=== PATIENT | male | born 1995 | race Caucasian/White ===

== ENCOUNTER 2019-12-16 23:40 | Inpatient (IN) ==
[2019-12-17] MEDS ORDERED: Ondansetron ODT 4 MG TAB.RAPDIS SL ONE (00:04)
[2019-12-17 00:12] LABS: Bilirubin,Urine Small (Negative); Blood,Urine Negative (Negative); Clarity,Urine Clear (Clear); Color,Urine Yellow (Yellow); Glucose,Urine (UA) Normal (Normal); Ketones,Urine Negative (Negative); Leukocyte Esterase,Urine Negative (Negative); Nitrite,Urine Negative (Negative); Protein,Urine 30 mg/dL (Neg-Trace); Specific Gravity,Urine 1.029 (1.010-1.025); Urobilinogen,Urine Normal (Normal)
[2019-12-17 00:13] LABS: Bacteria,Urine None Seen per hpf (None-Few); Hyaline Casts,Urine None Seen per lpf (None-Few); RBC,Urine 0-3 per hpf (0-3); Squamous Epithelial Cell,Urine Many per lpf (None-Few); WBC,Urine 0-3 per hpf (0-3)
[2019-12-17 00:17] LABS: Amphetamine Screen,Urine Positive ng/mL (Cutoff=1000); Barbiturate Screen,Urine Negative ng/mL (Cutoff=200); Benzodiazepines Screen,Urine Negative ng/mL (Cutoff=200); Cannabinoid Screen,Urine Positive ng/mL (Cutoff = 50); Cocaine Screen,Urine Positive ng/mL (Cutoff= 300); Opiate Screen,Urine Negative ng/mL (Cutoff=300); Phencyclidine Screen,Urine Negative ng/mL (Cutoff=25)
[2019-12-17] MEDS ORDERED: *HR* LORazepam 1 MG TABLET PO PRN (01:43)
[2019-12-17] MEDS ORDERED: traZODone 50 MG TABLET PO PRN (01:43)
[2019-12-17] MEDS ORDERED: Mag Hydrox/Al Hydrox/Simeth 30 ML UDC PO PRN (01:43)
[2019-12-17] MEDS ORDERED: Haloperidol Lactate 5 MG/ML VIAL IM PRN (01:43)
[2019-12-17] MEDS ORDERED: *HR* LORazepam 2 MG/ML VIAL IM PRN (01:43)
[2019-12-17] MEDS ORDERED: MOM Conc 10 ML UD.LIQ PO PRN (01:43)
[2019-12-17] MEDS ORDERED: haloperidoL 5 MG TABLET PO PRN (01:43)
[2019-12-17] MEDS ORDERED: hydrOXYzine pamoate 25 MG CAPSULE PO PRN (01:43)
[2019-12-17] MEDS ORDERED: Acetaminophen 325 MG TABLET PO PRN (01:43)
[2019-12-17] MEDS: Nicotine 21 MG PATCH.TD24 TD SCH (10:16)
[2019-12-17] MEDS ORDERED: lamoTRIgine 25 MG TABLET PO SCH (21:00)
[2019-12-18] MEDS: Nicotine 21 MG PATCH.TD24 TD SCH (12:11)
[2019-12-18] MEDS ORDERED: lamoTRIgine 25 MG TABLET PO SCH (21:00)
[2019-12-19 09:56] VITALS: BP 125/74
[2019-12-19] MEDS: Nicotine 21 MG PATCH.TD24 TD SCH (10:45)
== END 2019-12-19 11:10 | disposition home or self-care (01) | DRG 812 ==
LOC: EMEROOARM 23:40 → 1ANU 12-17 01:09
PROVIDERS: ADMIT Psychiatry & Neurology Psychiatry; ATTEND Psychiatry & Neurology Psychiatry

== ENCOUNTER 2022-03-07 14:10 | Observation (INO) ==
[2022-03-07 15:48] LABS: Bilirubin,Urine Negative (Negative); Blood,Urine Trace (Negative); Clarity,Urine Clear (Clear); Color,Urine Yellow (Yellow); Glucose,Urine (UA) Normal (Normal); Ketones,Urine Trace mg/dL (Negative); Leukocyte Esterase,Urine Negative (Negative); Nitrite,Urine Negative (Negative); PH,Urine 6.5 pH Units (5.0-8.0); Protein,Urine 30 mg/dL (Neg-Trace); RBC,Urine 0-3 per hpf (0-3); Specific Gravity,Urine 1.019 (1.010-1.025); WBC,Urine 0-3 per hpf (0-3)
[2022-03-07 16:03] LABS: Basophils % 0.5 %; Eosinophils # 0.1 K/mcL (0.0-0.6); Hematocrit 47.9 % (37.5-50.1); Immature Granulocytes % 0.3 % (0-4); Lymphocytes # 1.6 K/mcL (0.6-4.6); Lymphocytes % 19.7 %; Mean Corpuscular HGB Conc 35.5 g/dL (31.6-35.5); Mean Corpuscular Volume 90.2 fL (83.0-100.0); Monocytes # 0.9 K/mcL (0.0-1.3); Monocytes % 11.4 %; Neutrophils # 5.3 K/mcL (1.6-8.9); Platelet Count 197 K/mcL (140-400); Red Blood Count 5.31 M/mcL (4.19-5.50); Red Cell Distribution Width 12.1 % (11.5-14.5); Segmented Neutrophils % 67.1 %; White Blood Count 7.9 K/mcL (4.3-11.1)
[2022-03-07 16:09] LABS: Alanine Aminotransferase 166 Units/L (7-52); Albumin 4.7 g/dL (3.5-5.7); Albumin/Globulin Ratio 1.6 (1.1-2.2); Alkaline Phosphatase 36 Units/L (34-104); Amphetamine Screen,Urine Positive ng/mL (Cutoff=1000); Aspartate Amino Transferase 474 Units/L (13-39); BUN/Creatinine Ratio 15 (6-26); Barbiturate Screen,Urine Negative ng/mL (Cutoff=200); Benzodiazepines Screen,Urine Negative ng/mL (Cutoff=200); Bilirubin,Direct 0.7 mg/dL (0.0-0.2); Bilirubin,Indirect 3.6 mg/dL (0.0-1.0); Bilirubin,Total 4.3 mg/dL (0.3-1.0); Blood Urea Nitrogen 13 mg/dL (6-20); Calcium 9.7 mg/dL (8.6-10.3); Cannabinoid Screen,Urine Positive ng/mL (Cutoff = 50); Carbon Dioxide 28 mEq/L (23-29); Chloride 96 mEq/L (98-107); Cocaine Screen,Urine Negative ng/mL (Cutoff= 300); Globulin 2.9 g/dL (2.4-3.5); Glucose 104 mg/dL (70-105); Lipase 37 Units/L (11-82); Opiate Screen,Urine Negative ng/mL (Cutoff=300); Osmolality,Calculated 276 (280-300); Phencyclidine Screen,Urine Negative ng/mL (Cutoff=25); Potassium 4.1 mEq/L (3.5-5.1); Sodium 133 mEq/L (136-145); Total Protein 7.6 g/dL (6.4-8.9); eGFR For African Americans > 60 (> 60); eGFR For Non-African Americans > 60 (> 60)
[2022-03-07] MEDS ORDERED: Iopamidol - 370 500 ML MLS IVP ONE (16:18)
[2022-03-07] MEDS ORDERED: Ondansetron 4 MG/2 ML VIAL IVP ONE (16:19)
[2022-03-07] MEDS ORDERED: 0.9 % Sodium Chloride 1,000 ML IVC ONE (16:19)
[2022-03-07] MEDS ORDERED: *HR* Heparin 5,000 UNIT/ML VIAL IVP PRN ×2 (17:40)
[2022-03-07] MEDS ORDERED: *HR* Heparin 5,000 UNIT/ML VIAL IVP ONE (17:40)
[2022-03-07] MEDS ORDERED: Aspirin 81 MG TAB.CHEW PO ONE (17:42)
[2022-03-07] MEDS ORDERED: Heparin 25,000UNIT/250ML 1/2NS 25,000 UNIT/250 ML IV.SOLN IVC SCH (17:45)
[2022-03-07 18:37] LABS: Heparin anti-factor XA UFH < 0.04 IU/mL (0.30-0.70)
[2022-03-07 18:38] LABS: INR 1.3; Prothrombin Time 14.2 Seconds (9.4-12.1)
[2022-03-07 18:50] LABS: Hepatitis B Surface Antigen Nonreactive (Nonreactive)
[2022-03-07 19:20] LABS: Hepatitis A Antibody IgM Nonreactive (Nonreactive); Hepatitis B Core IgM Nonreactive (Nonreactive)
[2022-03-07 19:50] LABS: Ethanol < 10 mg/dL (Less than 10)
[2022-03-07] MEDS ORDERED: Naloxone 0.4 MG/ML INJ IVP PRN (19:59)
[2022-03-07 20:49] LABS: Immature Reticulocyte % 14.3 % (11.0-38.0); Retculocyte # 0.07 M/mcL (0.05-0.10); Reticulocyte % 1.3 % (1.6-2.8)
[2022-03-07 22:17] LABS: Troponin I 0.19 ng/mL (< 0.04)
[2022-03-07 22:23] LABS: Hepatitis C Virus Antibody Reactive (Nonreactive)
[2022-03-07 22:31] LABS: Acetaminophen < 10 mcg/mL (10-20); Chol/HDL Ratio 3.3 (0-4.9); Cholesterol 121 mg/dL (< 200); HDL Cholesterol 37 mg/dL (40-59); LDL Cholesterol,Calculated 72 mg/dL (< 100); Lactate Dehydrogenase 764 Units/L (140-271); Triglycerides 62 mg/dL (< 150)
[2022-03-07] MEDS ORDERED: Perflutren Lipid Microsphere 1.3 ML in 0.9 % Sodium Chloride 8.7 ML IVP PRN (22:37)
[2022-03-07] MEDS ORDERED: Nicotine 7 MG PATCH.TD24 TD PRN (22:38)
[2022-03-07] MEDS ORDERED: *HR* Atropine Sulfate 1 MG/10 ML SYRINGE IVP ONE (22:40)
[2022-03-07 23:10] LABS: Estimated Average Glucose 94 mg/dl; Hemoglobin A1C 4.9 %
[2022-03-07] MEDS ORDERED: *HR* LORazepam 2 MG/ML VIAL IVP ONE (23:13)
[2022-03-08 00:57] LABS: Creatine Kinase 13243 Units/L (30-223); Thyroid Stimulating Hormone 1.411 mcIU/mL (0.340-5.600)
[2022-03-08 01:11] LABS: Albumin 4.2 g/dL (3.5-5.7); Albumin/Globulin Ratio 1.6 (1.1-2.2); Bilirubin,Direct 0.6 mg/dL (0.0-0.2); Bilirubin,Indirect 2.5 mg/dL (0.0-1.0); Bilirubin,Total 3.1 mg/dL (0.3-1.0); Globulin 2.7 g/dL (2.4-3.5); Total Protein 6.9 g/dL (6.4-8.9)
[2022-03-08 05:52] LABS: Hematocrit 42.9 % (37.5-50.1); Hemoglobin 14.8 g/dL (12.9-16.9); Immature Platelets 8.6 % (1.1-6.1); Mean Corpuscular HGB Conc 34.5 g/dL (31.6-35.5); Mean Corpuscular Volume 92.9 fL (83.0-100.0); Mean Platelet Volume 11.4 fL (9.4-12.4); Red Blood Count 4.62 M/mcL (4.19-5.50); Red Cell Distribution Width 12.2 % (11.5-14.5); White Blood Count 5.2 K/mcL (4.3-11.1)
[2022-03-08 06:00] LABS: INR 1.2; Prothrombin Time 13.4 Seconds (9.4-12.1)
[2022-03-08 06:03] LABS: Activated Partial Thrombo Time 41.7 Seconds (26.0-36.0)
[2022-03-08 06:12] LABS: BUN/Creatinine Ratio 16 (6-26); Blood Urea Nitrogen 13 mg/dL (6-20); Calcium 8.4 mg/dL (8.6-10.3); Carbon Dioxide 29 mEq/L (23-29); Chloride 101 mEq/L (98-107); Glucose 86 mg/dL (70-105); Magnesium 2.3 mg/dL (1.6-2.6); Osmolality,Calculated 283 (280-300); Phosphorous 4.1 mg/dL (2.7-4.5); Potassium 3.3 mEq/L (3.5-5.1); Sodium 137 mEq/L (136-145); eGFR For African Americans > 60 (> 60); eGFR For Non-African Americans > 60 (> 60)
[2022-03-08 06:56] LABS: Troponin I 0.16 ng/mL (< 0.04)
[2022-03-08] MEDS ORDERED: Metoprolol XL (24 HR) Succ 25 MG TAB.ER.24H PO SCH (09:00)
[2022-03-08] MEDS: Aspirin 81 MG TAB.CHEW PO SCH (09:52)
[2022-03-08] MEDS: 0.9 % Sodium Chloride 1,000 ML IVC SCH ×2 (09:54→21:11)
[2022-03-08] MEDS ORDERED: Melatonin 3 MG TABLET PO PRN (20:14)
[2022-03-08] MEDS ORDERED: *HR* LORazepam 2 MG/ML VIAL IVP ONE (23:47)
[2022-03-09 06:25] LABS: Basophils % 0.9 %; Hematocrit 40.5 % (37.5-50.1); Immature Granulocytes % 0.3 % (0-4); Segmented Neutrophils % 47.6 %
[2022-03-09 06:27] LABS: Eosinophils # 0.3 K/mcL (0.0-0.6); Eosinophils % 8.2 %; Hemoglobin 13.8 g/dL (12.9-16.9); Immature Platelets 7.4 % (1.1-6.1); Lymphocytes # 1.2 K/mcL (0.6-4.6); Lymphocytes % 35.4 %; Mean Corpuscular HGB Conc 34.1 g/dL (31.6-35.5); Mean Corpuscular Hemoglobin 31.9 pg (28.0-33.3); Mean Corpuscular Volume 93.8 fL (83.0-100.0); Mean Platelet Volume 11.5 fL (9.4-12.4); Monocytes # 0.3 K/mcL (0.0-1.3); Monocytes % 7.6 %; Neutrophils # 1.6 K/mcL (1.6-8.9); Platelet Count 134 K/mcL (140-400); Red Blood Count 4.32 M/mcL (4.19-5.50); Red Cell Distribution Width 12.1 % (11.5-14.5); White Blood Count 3.3 K/mcL (4.3-11.1)
[2022-03-09 06:43] LABS: Platelet Estimate Slight Decrease (Normal)
[2022-03-09 09:29] LABS: Alanine Aminotransferase 98 Units/L (7-52); Albumin 3.5 g/dL (3.5-5.7); Albumin/Globulin Ratio 1.8 (1.1-2.2); Alkaline Phosphatase 25 Units/L (34-104); Aspartate Amino Transferase 168 Units/L (13-39); BUN/Creatinine Ratio 15 (6-26); Bilirubin,Total 1.3 mg/dL (0.3-1.0); Blood Urea Nitrogen 10 mg/dL (6-20); Calcium 8.2 mg/dL (8.6-10.3); Carbon Dioxide 30 mEq/L (23-29); Chloride 106 mEq/L (98-107); Glucose 92 mg/dL (70-105); Osmolality,Calculated 285 (280-300); Potassium 3.8 mEq/L (3.5-5.1); Sodium 138 mEq/L (136-145); Total Protein 5.5 g/dL (6.4-8.9); eGFR For African Americans > 60 (> 60); eGFR For Non-African Americans > 60 (> 60)
[2022-03-09 09:40] LABS: C-Reactive Protein < 5 mg/L (Less than 10)
[2022-03-09] MEDS: Aspirin 81 MG TAB.CHEW PO SCH (09:56)
[2022-03-09] MEDS: 0.9 % Sodium Chloride 1,000 ML IVC SCH (09:56)
[2022-03-09 11:26] VITALS: BP 119/81; PULSE 80; TEMP 98.4; O2SAT 97
== END 2022-03-09 13:25 | disposition home or self-care (01) ==
LOC: 3NENU 14:10 → EMEROOARM 14:10 → SUATTDRO 19:44 → 3NENU 20:58
PROVIDERS: ADMIT Internal Medicine; ATTEND Hospitalist